=== PATIENT | female | born 1960 | race Caucasian/White ===

== ENCOUNTER 2017-06-17 15:29 | Emergency (ER) | payer MEDICAID, OTHER ==
[~2017-06-17] VITALS: Ht 149.9 cm; Wt 59.0 kg
[2017-06-17 15:58] VITALS: BP 120/93; PULSE 93; RESP 18; TEMP 97.7; O2SAT 98
--- NOTE | 2017-06-17 16:19 | PD ---
HPI Chief Complaint: General Weakness Time Seen by Provider: 16:06 Travel History International Travel<30 days: No Contact w/Intl Traveler<30days: No Traveled to known affect area: No History of Present Illness HPI 56-year-old female came to the emergency room with history of dizziness, disorientation, dyspnea on that is progressively worsening for past 2 weeks. Patient says that recently her had to buy her a cane since she was having trouble walking. Today her gait especially became very unsteady when she decided to come to the emergency room. She was getting confused trying to explain her symptoms exactly but she told me that she thinks that her right side feels weaker. Patient is a smoker. She drinks alcohol usually about 4 beers although not every day and sometimes some shots of hard liquor. No history of headache or chest pain. No history of trauma. She has history of fibromyalgia. She says her legs have been hurting for very long time. Vital signs were stable. Patient is not on any prescribed medications. The last time she saw a physician was about 5 or more years ago. She has an appointment coming up with a new physician who she has not seen yet. Patient denies doing any illicit drugs. She says that they have been camping for past 6 days. [facility] Past Medical History Narrative Medical List of her past medical, surgical, social and family history is reviewed from the nursing note. Arthritis: Yes Asthma: No Autoimmune Disease: Yes (FIBROMYALGIA) Blood Disorders: No Anxiety: Yes Depression: Yes Heart Rhythm Problems: No Cancer: Yes (CERVICAL ) Cardiac Catheterization: No Cardiovascular Problems: No High Cholesterol: Yes Chemotherapy: No Chest Pain: No Congestive Heart Failure: No COPD: Yes Diabetes: No Diminished Hearing: No Endocrine: No Fibromyalgia: Yes Gastrointestinal Disorders: Yes GERD: Yes Genitourinary: Yes Hypertension: No Immune Disorder: No Musculoskeletal: Yes (OSTEOARTHRITIS; FIBROMYALGIA) Neurologic: Yes (FIBROMYALGIA) Psychiatric: Yes Reproductive: Yes (HX OF CERVICAL CA.) Respiratory: Yes Myocardial Infarction: No Radiation Therapy: No Thyroid Disease: No Tetanus Vaccination: Unknown Influenza Vaccination: No ?: Not Past Surgical History Abdominal Surgery: Yes (APPENDECTOMY) Appendectomy: Yes Section: Yes (X2) Coronary Artery Bypass Graft: No Gynecologic Surgery: Yes (VAG. HYSTERECTOMY; X 2) Hysterectomy: Yes Other Surgery: Yes Social History Alcohol Use: Yes (4 PACK 3 TIMES A WEEK) Tobacco Use: Yes (1 PPD) Substance Use: No Allergies-Medications (Allergen,Severity, Reaction): Coded Allergies: No Known Allergies (Verified , 10/16/10) Comments No known drug allergies. Reported Meds & Prescriptions Reported Meds & Active Scripts Active No Active Prescriptions or Reported Medications Narrative Medication List of her home medications reviewed from the nursing note. Review of Systems Except as stated in HPI: all other systems reviewed are Neg Neurologic: Positive: Weakness, Dizziness Physical Exam Narrative GENERAL: Awake, alert, anxious, tearful SKIN: Focused skin assessment warm/dry. HEAD: Atraumatic. Normocephalic. EYES: Pupils equal and round. No scleral icterus. No injection or drainage. ENT: No nasal bleeding or discharge. Mucous membranes pink and moist. NECK: Trachea midline. No JVD. CARDIOVASCULAR: Regular rate and rhythm. No murmur appreciated. RESPIRATORY: No accessory muscle use. Clear to auscultation. Breath sounds equal bilaterally. GASTROINTESTINAL: Abdomen soft, non-tender, nondistended. Hepatic and splenic margins not palpable. MUSCULOSKELETAL: No obvious deformities. No clubbing. No cyanosis. No edema. NEUROLOGICAL: Awake and alert. No obvious cranial nerve deficits. Right upper and lower extremity weakness. Motor strength is 3 out of 5 of both right upper and lower extremity. Left upper and lower extremities 5 out of 5. Normal speech. PSYCHIATRIC: Appropriate mood and affect; insight and judgment normal. Data Data Last Documented VS Orders Orders Electrocardiogram (06/17/17 16:29) Prothrombin Time / Inr (Pt) (06/17/17 16:29) Complete Blood Count With Diff (06/17/17 16:29) Comprehensive Metabolic Panel (06/17/17 16:29) Creatine Kinase (Cpk) (06/17/17 16:29) Drug Screen, Random Urine (06/17/17 16:29) Troponin I (06/17/17 16:29) Urinalysis - C+S If Indicated (06/17/17 16:29) Ct Brain W/O Iv Contrast(Rout) (06/17/17 16:29) Chest, Single Ap (06/17/17 16:29) Ecg Monitoring (06/17/17 16:29) Iv Access Insert/Monitor (06/17/17 16:29) Oximetry (06/17/17 16:29) Sodium Chloride 0.9% Flush (Ns Flush) (06/17/17 16:30) Alcohol (Ethanol) (06/17/17 16:29) Urine Culture (06/17/17 16:35) Mri Brain W&W/O Contrast (06/17/17 ) Mra Brain W/O Contrast (Cow) (06/17/17 ) Mra Carotids W Contrast (06/17/17 ) Ed Discharge Order (06/17/17 20:45) Gadodiamide Pf Inj (Omniscan Pf Inj) (06/17/17 19:00) Labs Laboratory Tests Test 06/17/17 16:35 06/17/17 16:50 Urine Color STRAW Urine Turbidity SLIGHT Urine pH 5.5 Urine Specific [place] 1.004 Urine Protein NEG mg/dL Urine Glucose (UA) NEG mg/dL Urine Ketones NEG mg/dL Urine Occult Blood NEG Urine Nitrite NEG Urine Bilirubin NEG Urine Leukocyte Esterase NEG Urine RBC 0-2 /hpf Urine WBC 0-2 /hpf Urine Squamous Epithelial Cells 0-5 /hpf Urine Bacteria MANY /hpf Microscopic Urinalysis Comment CULTURE INDICATED Urine Opiates Screen NEG Urine Barbiturates Screen NEG Urine Amphetamines Screen NEG Urine Benzodiazepines Screen POS Urine Cocaine Screen NEG Urine Cannabinoids Screen POS White Blood Count 6.1 TH/MM3 Red Blood Count 4.14 MIL/MM3 Hemoglobin 13.8 GM/DL Hematocrit 41.6 % Mean Corpuscular Volume 100.6 FL Mean Corpuscular Hemoglobin 33.3 PG Mean Corpuscular Hemoglobin Concent 33.2 % Red Cell Distribution Width 12.4 % Platelet Count 385 TH/MM3 Mean Platelet Volume 7.8 FL Neutrophils (%) (Auto) 65.8 % Lymphocytes (%) (Auto) 26.8 % Monocytes (%) (Auto) 4.9 % Eosinophils (%) (Auto) 1.2 % Basophils (%) (Auto) 1.3 % Neutrophils # (Auto) 4.0 TH/MM3 Lymphocytes # (Auto) 1.6 TH/MM3 Monocytes # (Auto) 0.3 TH/MM3 Eosinophils # (Auto) 0.1 TH/MM3 Basophils # (Auto) 0.1 TH/MM3 CBC Comment DIFF FINAL Differential Comment Prothrombin Time 10.5 SEC Prothromb Time International Ratio 1.0 RATIO Blood Urea Nitrogen 8 MG/DL Creatinine 0.46 MG/DL Random Glucose 74 MG/DL Total Protein 7.7 GM/DL Albumin 3.5 GM/DL Calcium Level 8.8 MG/DL Alkaline Phosphatase 83 U/L Aspartate Amino Transf (AST/SGOT) 84 U/L Alanine Aminotransferase (ALT/SGPT) 90 U/L Total Bilirubin 0.3 MG/DL Sodium Level 143 MEQ/L Potassium Level 3.8 MEQ/L Chloride Level 111 MEQ/L Carbon Dioxide Level 24.7 MEQ/L Anion Gap 7 MEQ/L Estimat Glomerular Filtration Rate 142 ML/MIN Total Creatine Kinase 99 U/L Troponin I LESS THAN 0.02 NG/ML Ethyl Alcohol Level 82 MG/DL [facility] Medical Decision Making Medical Screen Exam Complete: Yes Emergency Medical Condition: Yes Medical Record Reviewed: Yes Interpretation(s) Twelve-lead EKG was reviewed by me. Normal sinus rhythm, normal axis, nonspecific ST-T wave changes. Heart rate of 80 bpm. Differential Diagnosis CVA, intracranial tumor, intracranial bleed Narrative Course 4:48 PM awaiting for the blood test and CAT scan to be done and resulted. Patient is getting IV fluid bolus. 5:40 PM blood test results of back and within acceptable limits. Her urine drug screen is positive for benzo and marijuana in spite of her saying that she is not on any prescription medication for uses any illicit drugs. Alcohol level is 81. Patient did say that she had 2 sips of drink today. CT scan is negative. I've ordered an MRI and MRA of her brain and neck. Waiting for that to be done and resulted. 8:50 PM MRI and MRA are within normal limits. She will be discharged home with instructions. Procedures EKG Prior to Arrival: No Diagnosis Primary Impression: Dizziness Additional Impression: Polysubstance abuse Referrals: Primary Care Physician 2 days Additional Instructions: You should not be using medications that do not belong to you. This is considered misuse or abuse of these medications. Drink alcohol in moderation. Follow up with your primary care. Med/Other Pt SpecificInfo: No Change to Meds Scripts No Active Prescriptions or Reported Meds Disposition: 01 DISCHARGE HOME Condition: Stable Payal Garcia MD Jun 17, 2017 16:19
[2017-06-17] MEDS ORDERED: SODIUM CHLORIDE 0.9% FLUSH 10 ML FLUSH IVF PRN (16:30)
[2017-06-17 16:39] VITALS: O2SAT 97
[2017-06-17 16:41] LABS: BILIRUBIN, URINE NEG (NEG); BLOOD, URINE NEG (NEG); GLUCOSE,URINE NEG (NEG); KETONE, URINE NEG (NEG); NITRITE,URINE NEG (NEG); PH, URINE 5.5 (5.0-8.5); URINE LEUKOCYTE ESTERASE NEG (NEG)
[2017-06-17 16:51] LABS: URINE COLOR STRAW (YELLW/STRAW)
[2017-06-17 16:55] LABS: BACTERIA, URINE MANY /hpf; RBC, URINE 0-2 /hpf (0-3); SQUAMOUS EPITHELIAL CELL URINE 0-5 /hpf (0-5); WBC, URINE 0-2 /hpf (0-5)
--- NOTE | 2017-06-17 16:55 | RADRPT ---
EXAM DATE/TIME: 06/17/2017 16:43 [facility] COMPARISON: No previous studies available for comparison. INDICATIONS : Short of breath. MEDICAL HISTORY : Chronic obstructive pulmonary disease. SURGICAL HISTORY : None. ENCOUNTER: Initial ACUITY: 2 days PAIN SCORE: 10/10 LOCATION: Bilateral chest FINDINGS: A single view of the chest demonstrates the lungs to be symmetrically aerated without evidence of mas s, infiltrate or effusion. The cardiomediastinal contours are unremarkable. Osseous structures are intact. CONCLUSION: The lungs are clear. Rambo Gonzalez MD on June 17, 2017 at 16:53 Board Certified Radiologist. This report was verified electronically.
[2017-06-17 17:01] LABS: BASOPHIL # 0.1 TH/MM3 (0-0.2); BASOPHIL % 1.3 % (0.0-2.0); EOSINOPHIL # 0.1 TH/MM3 (0-0.4); EOSINOPHIL % 1.2 % (0.0-4.0); HEMATOCRIT 41.6 % (35.0-46.0); HEMOGLOBIN 13.8 GM/DL (11.6-15.3); LYMPH % 26.8 % (9.0-44.0); LYMPHOCYTE # 1.6 TH/MM3 (1.0-4.8); MEAN CELL VOLUME 100.6 FL (80.0-100.0); MEAN CORPUSCULAR HEMOGLOBIN 33.3 PG (27.0-34.0); MEAN CORPUSCULAR HGB CONC 33.2 % (32.0-36.0); MEAN PLATELET VOLUME 7.8 FL (7.0-11.0); MONO % 4.9 % (0.0-8.0); MONOCYTE # 0.3 TH/MM3 (0-0.9); NEUT % 65.8 % (16.0-70.0); PLATELET COUNT 385 TH/MM3 (150-450); RED BLOOD COUNT 4.14 MIL/MM3 (4.00-5.30); RED CELL DISTRIBUTION WIDTH 12.4 % (11.6-17.2); WHITE BLOOD COUNT 6.1 TH/MM3 (4.0-11.0)
[2017-06-17 17:13] LABS: CHLORIDE 111 MEQ/L (98-107); SODIUM (NA) 143 MEQ/L (136-145)
[2017-06-17 17:16] LABS: CALCIUM 8.8 MG/DL (8.5-10.1)
[2017-06-17 17:17] LABS: ALBUMIN 3.5 GM/DL (3.4-5.0); BICARBONATE 24.7 MEQ/L (21.0-32.0); BLOOD UREA NITROGEN 8 MG/DL (7-18); GLUCOSE,RANDOM 74 MG/DL (74-106)
[2017-06-17 17:20] LABS: ALT (GPT) 90 U/L (10-53); AST (GOT) 84 U/L (15-37); CREATININE 0.46 MG/DL (0.50-1.00); GLOMERULAR FILTRATION RATE 142 ML/MIN (>89)
[2017-06-17 17:21] LABS: TOTAL BILIRUBIN ADULT 0.3 MG/DL (0.2-1.0)
[2017-06-17 17:22] LABS: TOTAL PROTEIN 7.7 GM/DL (6.4-8.2)
[2017-06-17 17:23] LABS: ALKALINE PHOSPHATASE 83 U/L (45-117)
[2017-06-17 17:25] LABS: TROPONIN I LESS THAN 0.02 NG/ML (0.02-0.05)
--- NOTE | 2017-06-17 17:34 | RADRPT ---
EXAM DATE/TIME: 06/17/2017 17:21 [facility] COMPARISON: No previous studies available for comparison. INDICATIONS : Unsteady gait, and weakness. RADIATION DOSE: 56.09 CTDIvol (mGy) MEDICAL HISTORY : Cervical cancer. Fibromyalgia. SURGICAL HISTORY : Hysterectomy. ENCOUNTER: Initial ACUITY: 1 day PAIN SCALE: 0/10 LOCATION: cranial TECHNIQUE: Multiple contiguous axial images were obtained of the head. Using automated exposure control and adj ustment of the mA and/or kV according to patient size, radiation dose was kept as low as reasonably a chievable to obtain optimal diagnostic quality images. DICOM format image data is available electro nically for review and comparison. FINDINGS: CEREBRUM: The ventricles are normal for age. No evidence of midline shift, mass lesion, hemorrhage or acute in farction. No extra-axial fluid collections are seen. POSTERIOR FOSSA: The cerebellum and brainstem are intact. The 4th ventricle is midline. The cerebellopontine angle i s unremarkable. EXTRACRANIAL: The visualized portion of the orbits is intact. SKULL: The calvaria is intact. No evidence of skull fracture. CONCLUSION: 1. Negative noncontrast CT brain. Rambo Gonzalez MD on June 17, 2017 at 17:32 Board Certified Radiologist. This report was verified electronically.
[2017-06-17 18:12] VITALS: BP 96/67; PULSE 82; RESP 16; O2SAT 96
[2017-06-17 18:13] LABS: PROTHROMBIN TIME - PATIENT 10.5 SEC (9.8-11.6)
[2017-06-17] MEDS ORDERED: GADODIAMIDE PF 287 MG/ML 20 ML VIAL (for RAD MRI) IV PUSH ONE (19:00)
[2017-06-17 19:40] VITALS: BP 100/80; PULSE 81; RESP 16; O2SAT 98
--- NOTE | 2017-06-17 19:50 | RADRPT ---
EXAM DATE/TIME: 06/17/2017 18:53 [facility] COMPARISON: No previous studies available for comparison. INDICATIONS : CVA. Dizziness, disorientation, dyspnea. CONTRAST: 20 cc Omniscan (gadodiamide) IV MEDICAL HISTORY : Chronic obstructive pulmonary disease. Hypercholesterolemia. Arthritis. GERD. Cervical cancer. SURGICAL HISTORY : section. Appendectomy. Hysterectomy. Right wrist. ENCOUNTER: Subsequent ACUITY: 3 weeks PAIN SCORE: 3/10 LOCATION: cranial TECHNIQUE: Multiplanar, multisequence MRI of the brain was performed both prior to and following the administrat ion of paramagnetic contrast. FINDINGS: CEREBRUM: The ventricles are normal for age. No evidence of midline shift, mass lesion, hemorrhage or acute in farction. No extraaxial fluid collections are seen. The pituitary gland and suprasellar cistern are normal in configuration. WHITE MATTER: No significant signal abnormalities are seen in the white matter. POSTERIOR FOSSA: The cerebellum and brainstem are intact. The 4th ventricle is midline. The cerebellopontine angle is unremarkable. The cerebellar tonsils are normal in position. DIFFUSION IMAGING: No focal areas of restricted diffusion are seen. No evidence of acute infarction. EXTRACRANIAL: The visualized portions of the orbits and paranasal sinuses are unremarkable. POST-CONTRAST: No abnormal areas of parenchymal or dural enhancement. No evidence of blood-brain barrier breakdown. CONCLUSION: Normal examination. Cedric Braga MD on June 17, 2017 at 19:47 Board Certified Radiologist. This report was verified electronically.
--- NOTE | 2017-06-17 20:41 | RADRPT ---
EXAM DATE/TIME: 06/17/2017 18:53 [facility] COMPARISON: No previous studies available for comparison. INDICATIONS : CVA. Dizziness, disorientation, dyspnea. MEDICAL HISTORY : Chronic obstructive pulmonary disease. Hypercholesterolemia. Gastroesophageal reflux disease. GERD. C ervical cancer. SURGICAL HISTORY : section. Appendectomy. Hysterectomy. Right wrist. ENCOUNTER: Subsequent ACUITY: 2 weeks PAIN SCORE: 2/10 LOCATION: cranial Please note a normal MRA of the brain does not entirely exclude the possibility of a small aneurysm, nor the possibility of distal intracranial vessel disease. TECHNIQUE: 3D time of flight MRA was performed. Source images, multiplanar STS MIP, and 3D volume MIP reconstru ctions were reviewed. FINDINGS: There is excellent visualization of the major intracranial arteries out to the second-order branch ve ssels. There is no evidence for aneurysm, vessel truncation or stenosis, and no evidence for vascula r malformation. CONCLUSION: Normal examination. Cedric Braga MD on June 17, 2017 at 20:39 Board Certified Radiologist. This report was verified electronically.
--- NOTE | 2017-06-17 20:41 | RADRPT ---
EXAM DATE/TIME: 06/17/2017 18:53 [facility] COMPARISON: No previous studies available for comparison. INDICATIONS : Stroke. Dizziness, disorientation, dyspnea. CONTRAST: 20 cc Omniscan (gadodiamide) IV MEDICAL HISTORY : Chronic obstructive pulmonary disease. Arthritis. Gastroesophageal reflux disease. GERD. Cervical can cer. SURGICAL HISTORY : section. Appendectomy. Hysterectomy. Right wrist. ENCOUNTER: Subsequent ACUITY: 2 weeks PAIN SCORE: 3/10 LOCATION: neck Percent stenosis is calculated using the diameter of the stenotic region over the diameter of the nor mal distal internal carotid artery. TECHNIQUE: Bolus infused MRA of the extracranial circulation was performed using a neurovascular coil. Post pro cessing was performed including rotating subvolume maximum intensity projections of each carotid keena ry, rotating full volume maximum intensity projections of both carotid arteries, sagittal and coronal sliding thin slab reformations of each carotid artery, and left oblique sliding thin slab reformatio n through the aortic arch to include the origin of the arch branch vessels. FINDINGS: There appears to have been a problem with timing or execution of the injection bolus which results in poor visualization of the arch and carotid vessel origins. In the neck, the vertebrals and carotids are well contrasted and appear normal with nothing to sugges t significant bifurcation disease. CONCLUSION: Technically suboptimal exam which nevertheless demonstrates normal carotids Cedric Braga MD on June 17, 2017 at 20:35 Board Certified Radiologist. This report was verified electronically.
[2017-06-17 20:56] VITALS: BP 100/65; TEMP 98.5
--- NOTE | 2017-06-18 18:50 | EKG ---
Date Performed: 06/17/2017 Time Performed: 16:39:29 PTAGE: 56 years EKG: Sinus rhythm POSSIBLE LEFT ATRIAL ENLARGEMENT BORDERLINE ECG Since the prior tracing, there has been no significa nt change PREVIOUS TRACING : 01/15/2014 16.09 DOCTOR: Berta Henry Interpretating Date/Time 06/18/2017 18:46:33
== END 2017-06-17 21:18 | disposition home or self-care (01) ==
LOC: PHED 15:29
DX: R42 Dizziness and giddiness (principal); F19.10 Other psychoactive substance abuse, uncomplicated; A49.8 Other bacterial infections of unspecified site; R94.31 Abnormal electrocardiogram [ECG] [EKG]; M79.7 Fibromyalgia; E78.00 Pure hypercholesterolemia, unspecified; J44.9 Chronic obstructive pulmonary disease, unspecified; K21.9 Gastro-esophageal reflux disease without esophagitis; F17.200 Nicotine dependence, unspecified, uncomplicated
CPT/HCPCS: 70450; 70544; 70548; 70553; 71045; 80053; 80307; 81001; 82550; 84484; 85025; 85610; 87077; 87086; 87186; 93005; 99285; A9579